=== PATIENT | male | born 1945 | race Caucasian/White ===

== ENCOUNTER → 2018-06-03 11:54 | Outpatient (CLI) | payer MEDICARE, SELFPAY ==
--- NOTE | 2018-06-03 12:06 | RAD_ITS ---
STUDY: X-RAY - LUMBAR SPINE REASON FOR EXAM: Male, 72 years old. Low back pain and radiculopathy TECHNIQUE: 3 view(s) of the lumbar spine were obtained. COMPARISON: None FINDINGS: Normal lumbar lordosis. There is a levoscoliosis of the lumbar spine. There is a normal alignment of the vertebrae. Normal vertebral bodies and endplates. There is multi-level degenerative disc disease with multi-level disc space narrowing and small anterior osteophytes. No spondylolisthesis. There are mild aortic calcifications. The soft tissue structures are unremarkable. RAD/Lumbar Spine 2 or 3 Views IMPRESSION: Multilevel degenerative disc disease. Electronically Signed: Adama Tucker, at 12:21 EDT Tel , Service support ,
== END ==
PROVIDERS: Family Provider Family Medicine; PCP Family Medicine; Referring Provider Anesthesiology Pain Medicine; Visit Provider Anesthesiology Pain Medicine
DX: M54.5 Low back pain (principal)
CPT/HCPCS: 72100

== ENCOUNTER → 2018-07-01 11:59 | Outpatient (CLI) | payer MEDICARE, SELFPAY ==
--- NOTE | 2018-07-01 12:02 | RAD_ITS ---
STUDY: X-RAY - CERVICAL SPINE REASON FOR EXAM: Male, 72 years old. Left-sided neck pain for 2 weeks. TECHNIQUE: 3 view(s) of the cervical spine were obtained. COMPARISON: None FINDINGS: There are degenerative changes of the anterior atlantoaxial articulation. Normal odontoid process. There is straightening of the normal cervical lordosis. There is multi-level endplate spondylosis. There is multi-level degenerative disc disease with multilevel disc space narrowing. Normal visualized intervertebral neuroforamina. The soft tissue structures are unremarkable. RAD/Cerv Spine 2 or 3 Views IMPRESSION: Multilevel degenerative changes and decreased disc space with compounding demineralization. No evidence of malalignment. Likely fusion at C5-6 is noted. Electronically Signed: Kermit Olvera DO at 22:16 EDT , Service support ,
== END ==
PROVIDERS: Family Provider Family Medicine; PCP Family Medicine; Referring Provider Anesthesiology Pain Medicine; Visit Provider Anesthesiology Pain Medicine
DX: M54.2 Cervicalgia (principal)
CPT/HCPCS: 72040

== ENCOUNTER → 2018-10-19 12:06 | Outpatient (CLI) | payer MEDICARE, SELFPAY ==
--- NOTE | 2018-10-19 12:22 | RAD_ITS ---
HISTORY: Pain left hip, NKI ADDITIONAL HISTORY: None provided. COMPARISON: None TECHNIQUE: AP and lateral views of the left hip with AP pelvis Number of images including paperwork: 3 FINDINGS: BONES: No acute fracture. Laminectomy defects noted in the lower spine. JOINTS: No subluxation. Advanced degenerative changes of the left hip. Mild degenerative changes of the right hip. SOFT TISSUES: No distinct foreign body. RAD/HIP, UNI W/ Pelvis 2-3 Views IMPRESSION: Degenerative changes without acute osseous abnormality. at 2239 Reported and signed by: Marichuy Siu MD Electronically Signed: Marichuy Siu MD at 22:39 EDT Tel , Service support ,
== END ==
PROVIDERS: Family Provider Family Medicine; PCP Family Medicine; Referring Provider Anesthesiology Pain Medicine; Visit Provider Anesthesiology Pain Medicine
DX: M25.559 Pain in unspecified hip (principal)
CPT/HCPCS: 73502

== ENCOUNTER 2018-12-29 07:18 | Inpatient (IN) | payer MEDICARE, SELFPAY ==
[2018-12-17 13:20] VITALS: BP 116/62; PULSE 67; RESP 16; TEMP 36.8; O2SAT 95; BMI 29.4
--- NOTE | 2018-12-17 13:37 | PCM.HP.BLA ---
History and Physical History and Physical Patient Name: Daniel Lama : 1945 From: CARIDAD OROPEZA PA-C DATE OF SURGERY: 12/29/2018 SCHEDULED PROCEDURE: Left total hip arthroplasty HISTORY OF PRESENT ILLNESS: Preoperative history and physical exam was performed on December 17, 2018. This is a 73-year-old male who has been having ongoing pain in the left hip for the past 1 year. Patient also complains of right hip pain but left is worse. He does walk with a limp. Patient states his pain is intermittent, sharp, stabbing. He has increased pain with driving, walking, and working. He does have start up pain. Pain is located in his groin. He does have difficulty completing yard work due to the pain. He has difficulty with walking and shopping due to the pain. Patient has tried physical therapy and home exercises in 2018 with no relief in symptoms. He denies previous surgery on the left hip. Patient does see pain management doctor but solidly for low back pain and radiculopathy. He is currently on gabapentin. He has had a previous laminectomy in 2018 and has numbness and tingling in the left lower extremity. Patient has also tried [id number] ibuprofen with no relief in symptoms. After failing conservative measures and discussing treatment options with Dr. Poncho Chatman, the patient would like to proceed with a left total hip arthroplasty. We have obtain surgical clearance from the primary care physician Dr. Jesse Pro. Patient denies chest pain, shortness of breath, fevers chills, recent infections. REVIEW OF SYSTEMS: ROS: Const: Denies anorexia, change in appetite, fever, difficulty sleeping, weight change. CV: Denies chest pain, heart murmur, irregular heartbeat and peripheral vascular disease. Resp: Denies asthma, cough, pneumonia, sleep apnea, shortness of breath, tuberculosis and wheezing. GI: Reports rectal itching, but denies constipation, diarrhea, heartburn, nausea, bloody stools and vomiting. : Denies incontinence. Musculo: Denies leg swelling, pain, trouble walking and weakness. Skin: Denies Raynaud's, history of shingles and tattoo. Neuro: Denies ambulatory dysfunction, dizziness, numbness/tingling and tremor. Psych: Denies anxiety, depression, insomnia, mental illness and stress. Paul/Lymph: Denies anemia, bleeding/bruising tendency and past transfusion. Reviewed, no changes. PAST MEDICAL HISTORY: Advance Care Plan: No Advance Directives Effective Date: 12/02/2018 PMH: Medical Problems: High Blood Pressure, High Cholesterol Accidents: None Surgical Hx: Tonsillectomy - (1944) [place] Laminectomy - (2018) Hernia Repair - (2018) Anesthesia Complications: Waking Up Assistive Devices: Dentures - partial Reviewed and updated. SOCIAL HISTORY: SH: Marital: .Occupation: Retired.Work Status: Retired.Hand Dominance: Right-handed. Personal Habits: Cigarette Use: Never.Smokeless Tobacco: Never Used Smokeless Tobacco.E-Cigarette Use: Never used.Alcohol: Occasionally.Drug Use: Denies Use.Enjoy Exercising: Exercises 1-3 X/Week. Reviewed, no changes. VITALS: Ht: 70 Wt: 199lb Wt k.266 BMI: 28.6 BP: 118/80 Pulse: 70 Resp: 16 T: 97.7 T: 36.5C ALLERGIES: No Known Drug Allergy MEDICATIONS: Aspir-81 81 mg 1 po qdAY, Hydrochlorothiazide 25 mg 1 by mouth every day, Simvastatin 40 mg 1 by mouth every day, Losartan Potassium 100 mg 1 by mouth every day, Gabapentin 300 mg 1-2 tabs at bedtime PRE-OP EXAM: General appearance:NORMAL Other: Eyes: Conjunctivae and lids: NORMAL Pupils: ERR Ears, Nose, Mouth, and Throat: NORMAL Other: Inspection of lips, teeth and gums: NORMAL Other: Neck: Examination of neck: no masses noted. Respiratory: Assessment of respiratory effort: NORMAL Other: Auscultation of lungs: clear to auscultation no wheezes, rhonchi or rales. Cardiovascular: Auscultation of heart: regular rate and rhythm, no murmurs, gallops or rubs. Gastrointestinal: Exam of abdomen: soft, nontender, nondistended bowel sounds present. PHYSICAL EXAMINATION: Patient does walk with a limping gait. Left hip is cool to touch without erythema. There is tenderness to palpation of the left lateral hip. There is 3 mm leg length discrepancy with the left being shorter than the right. Patient does have obligatory rotation with flexion of the left hip. Left hip range of motion: 80 flexion, 30 external rotation, internal rotation neutral. Patient does have flexion contracture. Sensation intact to light touch. Neurovascularly intact. IMAGING STUDIES: X-rays of the left hip were obtained at [facility] [place] on December 17, 2018 including AP pelvis, AP left hip, crossfire lateral left hip reveal severe joint space narrowing with [id number] contact with osteophyte formation at the acetabulum and subchondral sclerosis. This is consistent with severe hypertrophic left hip osteoarthritis. There is mild to moderate joint space narrowing of the acetabulum of the right hip. No acute finding for fracture or dislocation. No lytic or blastic lesions. IMPRESSION: 1. Severe left hip osteoarthritis 2. Right hip osteoarthritis 3. Hypertension 4. Hypercholesterolemia 5. Chronic low back pain with radiculopathy PLAN: Dr. Poncho Chatman did discuss and review with the patient all treatment options including surgical versus nonsurgical options. Patient does wish to proceed with the above-stated procedure. Potential risks, benefits, and complications of the procedure were discussed in detail including but not limited to , infection, nerve and blood vessel damage, persistent pain, numbness, tingling, paresthesias, blood clot, pulmonary embolism, and requirement for possible further surgery. The patient expressed full understanding and has no further questions for the doctor. Patient does agree to proceed with the above-stated procedure and has signed the surgery consent form. This dictation was created using voice recognition software. Phonetic and/or grammatical errors may exist. ___ I have re-examined the patient. There are no clinical changes since date of exam. ___ See progress notes for changes. ___ Dictated on admission Date: Time: Signature:
[2018-12-17 14:15] LABS: Absolute Lymphocyte Count 1.05 X10^3/uL (0.83-4.51); Absolute Neutrophil Count 3.3 X10^3/uL (2.0-7.7); Basophil# 0.08 X10^3/uL; Basophil% 1.6 % (0-1); Eosinophil# 0.07 X10^3/uL; Eosinophils% 1.4 % (0-5); Hematocrit 42.3 % (40-54); Hemoglobin 14.3 g/dL (13.0-16.5); Lymphocyte # 1.05 X10^3/ul (4.0); Lymphocyte % 21.1 % (19-41); Mean Corp Hgb Conc 33.8 g/dL (32-36); Mean Corpuscular Hgb 29.3 pg (27.0-32.0); Mean Corpuscular Volume 86.7 fL (80-94); Mean Platelet Vol. 10.2 fl (6.2-12.0); Monocyte# 0.42 X10^3/uL; Monocyte% 8.5 % (0-10); NRBC Flagged by Analyzer 0 % (0-5); Neutrophil # 3.32 X10^3/uL (2.7-7.7); Neutrophil % 66.8 % (47-70); Platelet Count 205 K/mm3 (150-450); RBC Distribution Width CV 12.8 % (11.6-14.6); RBC Distribution Width SD 40.5 fl (35.1-43.9); Red Blood Count 4.88 M/mm3 (4.6-6.2)
[2018-12-17 14:46] LABS: Anion Gap 9 (5-15); BUN 16 mg/dL (7-18); BUN/Creat Ratio 18.9 RATIO (10-20); Calcium,Total 8.7 mg/dL (8.5-10.1); Chloride 107 mmol/L (98-107); Creatinine, Serum 0.85 mg/dL (0.70-1.30); EST Glomerular Filtration Rate 94 mL/min (>60); Est Glom Filt Rate - Afr Amer 113 mL/min (>60); Estimated Creatinine Clearance 77.53 ml/min; Glucose 122 mg/dL (74-106); Potassium 3.5 mmol/L (3.5-5.1); Sodium Level 140 mmol/L (136-145)
[2018-12-29] VITALS (13 sets, daily range): BP systolic 105–150; BP diastolic 55–77; PULSE 61–82; RESP 14–18; TEMP 36.2–36.8; O2SAT 94–100; BMI 29.4
[2018-12-29 07:41] LABS: Bedside Glucose 82 mg/dL (70-110)
[2018-12-29] MEDS: Gabapentin 600 MG Tablet PO (07:54)
[2018-12-29] MEDS: Magnesium Sulfate 4gm/100mL 4 GM/100 ML IV.SOLN. IV (07:54)
[2018-12-29] MEDS: Celecoxib 200 MG Capsule 400 MG PO (07:54)
[2018-12-29] MEDS: Acetaminophen 500 MG Tablet 1000 MG PO ×3 (07:54→21:08)
[2018-12-29] MEDS: Lactated Ringers 1,000 ML 100 ML IV (08:10)
[2018-12-29] MEDS: Cefazolin 2 GM in 0.9% Normal Saline 100 ML IV (09:40)
--- NOTE | 2018-12-29 10:42 | RAD_ITS ---
STUDY: X-RAY - LEFT HIP REASON FOR EXAM: Male, 73 years old. Hip replacement TECHNIQUE: 3 fluoroscopic spot views of the left hip. Fluoroscopy utilized for 0 minutes 5 seconds. COMPARISON: None. FINDINGS: Intraoperative fluoroscopy utilized during left hip replacement. RAD/Hip 1 view with Pelvis IMPRESSION: Intraoperative fluoroscopy. Electronically Signed: Wero Marvin MD at 17:32 EST , Service support ,
[2018-12-29] MEDS: Lactated Ringers 1,000 ML 999 ML IV (11:20)
--- NOTE | 2018-12-29 11:21 | PCM.OPRPT ---
Report of Operation Date of Procedure: 12/29/18 Pre-Operative Diagnosis: Left hip primary osteoarthritis Post-Operative Diagnosis: Left hip primary osteoarthritis Surgery/Procedure Performed:: Left minimally invasive direct anterior total replacement Description of Surgical Findings:: Stable hip with equal leg lengths exchange administrator: Aleena Paul Type of Anesthesia:: Spinal Anesthesiologist: Kyler Quinones Special Medications: 2 g Ancef, 1 g TXA at incision, 1 g TXA closure, 10 mg Decadron, joint cocktail (5 mg Duramorph, 30 mL of 0.5% Ropivicaine, 1000 units of epinephrine, 30 mg of Toradol) Specimen's removed: Bony cuts Estimated Blood Loss (mL): 150 Fluids Replaced: 700 mL crystalloid Description of Procedure: Components used: 1. Accolade 2 [place] femoral stem size 8 132? 2. Joanie trident 2 acetabular shell size 58 mm 3. Joanie X3 polyethylene F 4. Joanie Biolox delta 36mm, -2.5mm femoral head Brief history operative indications: 73 yo m who failed conservative measures for their hip osteoarthritis. X-rays were consistent with osteoarthritis including joint space narrowing, osteophyte formation and subchondral cysts. Total hip replacement was discussed with the patient with risks and benefits including but not limited to blood loss, DVTs, PEs, neurovascular damage, dislocation, general risks of anesthesia including loss of life. Patient demonstrated an understanding medical clearance is obtained the patient was consented for surgery. Procedure: On the date of procedure the patient's L hip was marked in the preoperative area. Patient was then taken back to the operating room where anesthesia assumed control of the C-spine and airway and administered anesthetic. Patient was transferred to the operating table and placed in the supine position. The hips were placed at the break of the bed and a sacral bump was placed. The L lower extremity was then prepped out in a sterile fashion using chlorhexidine while the surgeon scrubbed. The PA was vital in the positioning of the patient. Upon reentering the room the L lower extremity was draped in the standard orthopedic fashion and the incision was marked. A timeout was called and everyone agreed upon the side, the site, the procedure be performed, antibody given, and patient's identity. At this time incision was made through skin, subcutaneous tissue, and fat down to fascia. The fascia was then incised and the TFL was retracted laterally. A retractor was placed on the lateral border of the femoral neck. Attention was directed to the inferior portion of the approach and all crossing vessels were identified and appropriately coagulated. A retractor was then placed on the medial portion of the femoral neck. The anterior capsule was then cleared of all soft tissue and then H shaped capsulotomy was made. The retractors were then placed inside the capsule. The femoral neck was identified and a cleanup cut was made. At this time a power corkscrew was used to remove the femoral head. Attention was then turned toward the acetabulum where the soft tissues were appropriately retracted and the acetabulum was sequentially reamed to 58 mm. A 58 mm cup was then selected and impacted into place. Acetabular liner was impacted into place and locking mechanism was verified. The position of the acetabular cup was then verified under live fluoroscopy. Attention was then turned to the femur. Soft tissue releases on the medial and lateral femoral neck were appropriately done, the leg was externally rotated and lateralized. A Benavidez retractor was placed medially and proximally to the greater trochanter this allowed appropriate visualization and exposure of the femoral canal. Rongeour was then used to remove excess lateral bone. A canal finder and entry broach were used to open the proximal canal. Once we verified we were down the femoral canal we subsequently broached up to a size 8 femur. The appropriate neck was placed in the previously selected head was trialed with a -2.5 mm neck. Traction was pulled and the hip was reduced with internal rotation. Once it was appropriately reduced and stability was checked. There was minimal shuck, equal leg lengths and appropriate stability with hyperextension and external rotation as well as with 90? flexion and internal rotation. Fluoroscopy was then also used to verify the position of the components and leg lengths using the contralateral side for comparison. The trial components were then dislocated the proximal femur was again exposed and the components were removed from the wound. The final components were verified and opened. The wound was copiously irrigated out with normal saline. The acetabulum was checked for any residual debris. The final components were placed and impacted. Traction and internal rotation were again used to reduce the hip. After adequate reduction the hip remained stable with appropriate leg lengths. The final components were once again checked with live fluoroscopy and were found to be satisfactory. The wound was then copiously irrigated with normal saline once more, and hemostasis was obtained. Closure was then done using #1 Vicryl runner to close the fascia. A 2-0 vicryl interuppted sutures were used to close the subcutaneous skin. A 3-0 Monocryl and Steri-Strips were used for final skin closure. A Silverlon dressing was placed. Patient was awakened by anesthesia and transferred to the [facility]. Patient was then transferred to the PACU for recovery. Postoperative plan: Patient will get 24 hours postop antibiotics. Patient will get in-house physical therapy and will be weight-bear as tolerated. Patient will follow up in office in 2 weeks for a wound check and x-rays. Grafts/Implants Used: [place] - Complications No intraoperative complications - Admit VTE Documentation VTE Present on Admission: No VTE Mechan Device Prophylaxis: SCD's, Thigh High KADEEM Hose VTE Pharm Prophylaxis ordered?: Yes
[2018-12-29] MEDS: Scopolamine 1mg/72hr Patch 1 PATCH TD (11:30)
--- NOTE | 2018-12-29 12:22 | RAD_ITS ---
STUDY: X-RAY - PELVIS AND LEFT HIP REASON FOR EXAM: Male, 73 years old. Postoperative evaluation TECHNIQUE: 3 views of the pelvis and hip. COMPARISON: Pelvic x-ray dated October 19, 2018 FINDINGS: There is a non-specific bowel gas pattern. Normal visualized soft tissue structures. The new left hip prosthesis demonstrates good bony contact and alignment with well placed hardware. No occult fractures are seen. The remaining osseous structures are stable. Expected postoperative gas is seen in the soft tissue structures of the left hip. RAD/Hip Min 2 Views (Portable) IMPRESSION: Status post total left hip arthroplasty Electronically Signed: Be Esteban MD at 17:29 EST , Service support ,
[2018-12-29] MEDS: Lactated Ringers 1,000 ML 125 ML IV (13:43)
[2018-12-29] MEDS: Cefazolin 1 GM/50 ML BAG IV (17:47)
[2018-12-29] MEDS: Ensure Surgery 237 ML LIQUID PO (17:47)
[2018-12-29] MEDS: Aspirin 81 MG TAB.CHEW PO (17:48)
[2018-12-29] MEDS: Senna/Docusate Sodium 1 Tablet 2 TABLET PO (21:06)
[2018-12-29] MEDS: Atorvastatin Calcium 20 MG Tablet PO (21:08)
[2018-12-30] MEDS: Cefazolin 1 GM/50 ML BAG IV (02:08)
[2018-12-30 02:12] VITALS: BP 117/66; PULSE 59; RESP 18; TEMP 36.7; O2SAT 97
[2018-12-30 05:43] LABS: Hematocrit 36.6 % (40-54); Hemoglobin 12.3 g/dL (13.0-16.5); Mean Corp Hgb Conc 33.6 g/dL (32-36); Mean Corpuscular Hgb 29.4 pg (27.0-32.0); Mean Corpuscular Volume 87.4 fL (80-94); Mean Platelet Vol. 9.8 fl (6.2-12.0); Platelet Count 177 K/mm3 (150-450); RBC Distribution Width CV 13.2 % (11.6-14.6); RBC Distribution Width SD 41.8 fl (35.1-43.9); Red Blood Count 4.19 M/mm3 (4.6-6.2); White Blood Count 14.4 K/mm3 (4.4-11.0)
[2018-12-30 05:56] LABS: Anion Gap 5 (5-15); BUN 23 mg/dL (7-18); BUN/Creat Ratio 27.2 RATIO (10-20); Calcium,Total 8.1 mg/dL (8.5-10.1); Chloride 108 mmol/L (98-107); Creatinine, Serum 0.85 mg/dL (0.70-1.30); EST Glomerular Filtration Rate 94 mL/min (>60); Est Glom Filt Rate - Afr Amer 114 mL/min (>60); Estimated Creatinine Clearance 77.53 ml/min; Glucose 135 mg/dL (74-106); Potassium 4.3 mmol/L (3.5-5.1); Sodium Level 138 mmol/L (136-145)
[2018-12-30] MEDS: Acetaminophen 500 MG Tablet 1000 MG PO (06:21)
--- NOTE | 2018-12-30 07:55 | PCM.PN.ORT ---
Subjective: The patient was sitting in bedside chair upon examination. Patient denies any chest pain, shortness of breath, dizziness, lightheadedness, nausea or vomiting, or calf pain. Pain is controlled on medications. No adverse overnight events. Overall patient is doing very well and pain is well controlled. He is ready for discharge home.. Objective: Vital signs stable and afebrile. Patient is able to plantarflex and dorsiflex actively. Sensation is intact to light touch to saphenous, sural, superficial and deep peroneal, and tibial distribution. Dressing is clean dry and intact. Negative Homans bilaterally, negative signs and symptoms of DVT. - Physical Exam Vitals/I&O's: Vital Signs Temp Pulse Resp BP Pulse Ox 98.1 F 59 L 18 117/66 97 12/30/18 02:12 12/30/18 02:12 12/30/18 02:12 12/30/18 02:12 12/30/18 02:12 Oxygen Flow Rate (L/min) 6 Oxygen Delivery Method Room Air Weight: 93 kg Body Mass Index (BMI) 29.4 Intake and Output for Last 24 Hours 12/28/18 12/29/18 12/30/18 23:59 23:59 23:59 Intake Total 3060.00 / 3060.00 50 / 50 Output Total 500 / 500 Balance 3060.00 / 3060.00 -450 / -450 General: Alert, Oriented x3, Cooperative, No apparent distress Laboratory Results 12/30/18 05:25: WBC 14.4 H, RBC 4.19 L, Hgb 12.3 L, Hct 36.6 L, MCV 87.4, MCH 29.4, MCHC 33.6, RDW Std Deviation 41.8, RDW Coeff of Monik 13.2, Plt Count 177, MPV 9.8 12/30/18 05:25: Sodium 138, Potassium 4.3, Chloride 108 H, Carbon Dioxide 25.0, Anion Gap 5, BUN 23 H, Creatinine 0.85, Estim Creat Clear Calc 77.53, Est GFR (MDRD) Af Amer 114, Est GFR (MDRD) Non-Af 94, BUN/Creatinine Ratio 27.2 H, Glucose 135 H, Calcium 8.1 L Current Medications Acetaminophen (Tylenol) 1,000 mg PO Q8 CONSTANTIN Last Admin: 12/30/18 06:21 Dose: 1,000 mg Documented by: [facility], [facility]) [facility] Last Admin: 12/29/18 17:48 Dose: 81 mg Documented by: Atorvastatin Calcium (Lipitor) 20 mg PO QHS [facility] Last Admin: 12/29/18 21:08 Dose: 20 mg Documented by: Enteral Nutritional Formula (Ensure Surgery) 237 ml PO TIDCM [facility] Last Admin: 12/29/18 17:47 Dose: 237 ml Documented by: Famotidine (Pepcid) 20 mg PO DAILY [facility] Gabapentin (Neurontin) 600 mg PO DAILY@0800 [facility] Hydrochlorothiazide (Hctz) 25 mg PO DAILY [facility] Ketorolac Tromethamine (Toradol) 15 mg IV Q6H PRN PRN PRN Reason: Pain Score 1-5/10 Stop: 12/31/18 11:20 Losartan Potassium (Cozaar) 100 mg PO DAILY [facility] Meloxicam (Mobic) 7.5 mg PO BID [facility] Morphine Sulfate () 2 - 4 mg IV Q2H PRN PRN PRN Reason: Pain Score 4-10/10 Morphine Sulfate () 2 - 4 mg IV Q2H PRN PRN PRN Reason: Pain Score 4-10/10 Ondansetron HCl (Zofran) 4 mg IV Q8H PRN PRN PRN Reason: NAUSEA Promethazine HCl (Phenergan) 12.5 mg IM Q6H PRN PRN; Protocol PRN Reason: NAUSEA/VOMITING Senna/Docusate Sodium (Senokot-S, Gaby-Colace) 2 tablet PO BID [facility] Last Admin: 12/29/18 21:06 Dose: 2 tablet Documented by: Sodium Chloride () 10 - 40 ml IV UD PRN PRN Reason: SALINE FLUSH Tramadol HCl (Ultram) 50 - 100 mg PO Q6H PRN PRN PRN Reason: Pain Score 4-10/10 Medical Necessity - Tobacco Use Smoking Status: Never smoker Tobacco Use: Non-smoker Assessment/Plan 1. S/P direct anterior left total hip arthroplasty POD #1 2. Continue Pain Medications: Tylenol and tramadol 3. DVT Prophylaxis: Aspirin 81 mg twice daily for DVT prophylaxis 4. PT/OT: Weightbearing as tolerated 5. H & H: 12.3/36.6, asymptomatic 6. Reactive leukocytosis: Currently 14.4, afebrile. Patient did receive Decadron intraoperatively 7. Encouraged Incentive Spirometry 8. Disposition: Orthopedically stable, plan will be for discharge home today as long as patient tolerates physical therapy. Prescriptions will be E scribed to [facility]. Patient will follow-up per postop instructions. Patient has outpatient physical therapy established.
--- NOTE | 2018-12-30 08:02 | PCM.DC.THR ---
Discharge Diet: No Restrictions Discharge Activity: May Not Drive - while taking narcotic pain medications. May shower in (days): 1 - Dressing must remain intact skin. Turn dressing away from water Ice area for (Minutes): 20 - Every 1-2 hours while awake Weight Bearing Status: Weight bearing as tolerated Elevate: Operative Extremity Additional Activity Instructions:: Wear elastic stockings for 2 weeks. DO NOT use alcohol with narcotic pain medication. DO NOT make important decisions while taking narcotic medication. If you have problems with taking your medication (rash, itching, nausea, etc.) call the office at once. Call your doctor if your incision/area has: Increased Pain/ Swelling, Increased Redness, Foul Smelling Discharge Call your doctor if you observe: Fever of 101 or Higher Remove Dressing in (days):: 4 - Okay to remove dressing on January 03, 2019 Additional Instructions: Follow orthopedic postop instructions Allergies/Adverse Reactions: Allergies No Known Allergies Allergy (Verified 12/29/18 07:42) Medications to take at Discharge Hydrochlorothiazide [Hctz] 25 mg PO DAILY 06/02/14 Losartan Potassium [Cozaar] 100 mg PO DAILY 06/02/14 Simvastatin [Zocor] 40 mg PO QHS 06/02/14 Gabapentin [Neurontin] 600 mg PO DAILY 12/17/18 Acetaminophen [Tylenol] 1,000 mg PO Q8 #100 tab 12/30/18 Aspirin [Aspirin, Baby] 81 mg PO BIDCM 30 Days tab.chew 12/30/18 Famotidine [Pepcid] 20 mg PO DAILY #30 tab 12/30/18 Meloxicam [Mobic] 7.5 mg PO BID #60 tab 12/30/18 Senna/Docusate Sodium [Senokot-S] 2 tab PO BID #10 tab 12/30/18 traMADol [Ultram] 50 - 100 mg PO Q6H PRN PRN 4 Days #32 tablet 12/30/18 The following prescriptions were given: Meloxicam [Mobic] 7.5 mg PO BID #60 tab Transmission Status: Pending to [facility] Famotidine [Pepcid] 20 mg PO DAILY #30 tab Transmission Status: Pending to [facility] Senna/Docusate Sodium [Senokot-S] 2 tab PO BID #10 tab Transmission Status: Pending to [facility] Acetaminophen [Tylenol] 1,000 mg PO Q8 #100 tab Transmission Status: Pending to [facility] traMADol [Ultram] 50 - 100 mg PO Q6H PRN PRN 4 Days #32 tablet PRN Reason: Pain Score 4-1010 Transmission Status: Sent to [facility] Primary Care Physician: Jair Pro MD [Primary Care Provider] - Test Results: Test results from this visit will be discussed in further detail at your follow-up appointment, if applicable. Please Follow Up With: Physical Therapy When: 01/03/19 @ 9:00 am Please Follow Up With: Poncho Kelly PA-C When: 01/12/19 @ 10:45 am
[2018-12-30] MEDS: Losartan Potassium 50 MG Tablet 100 MG PO (09:04)
[2018-12-30] MEDS: Gabapentin 600 MG Tablet PO (09:04)
[2018-12-30] MEDS: Aspirin 81 MG TAB.CHEW PO (09:04)
[2018-12-30] MEDS: Ensure Surgery 237 ML LIQUID PO (09:04)
[2018-12-30 09:05] VITALS: PULSE 68
[2018-12-30] MEDS: Famotidine 20 MG Tablet PO (09:05)
[2018-12-30] MEDS: hydroCHLOROthiazide 25 MG Tablet PO (09:05)
[2018-12-30] MEDS: Senna/Docusate Sodium 1 Tablet 2 TABLET PO (09:06)
[2018-12-30 10:13] VITALS: BP 116/68; PULSE 67; RESP 18; TEMP 36.9; O2SAT 96
--- NOTE | 2018-12-30 11:12 | CASEMGMT ---
MOON MCMANUS attempted to complete CM assessment. Patient has beed discharged and unable to complete. Patient has outpatient therapy scheduled at [facility] on Thursday01/03/19. Per therapy note patient has walker. Per nursing providing transportation.
== END 2018-12-30 10:43 | disposition home or self-care (01) | DRG 470 ==
LOC: ACINP 07:19 → MS3 12:43
PROVIDERS: Admitting Provider Specialist; Family Provider Family Medicine; PCP Family Medicine; Referring Provider Specialist; Visit Provider Specialist
PROC: 0SRB04A Replacement of Left Hip Joint with Ceramic on Polyethylene Synthetic Substitute, Uncemented, Open Approach (ICD-10-PCS; CPT 27284; principal; 2018-12-29 09:35)
DX: M16.0 Bilateral primary osteoarthritis of hip (principal); I10 Essential (primary) hypertension; E78.00 Pure hypercholesterolemia, unspecified; M54.16 Radiculopathy, lumbar region; G89.29 Other chronic pain; D72.828 Other elevated white blood cell count; Z79.899 Other long term (current) drug therapy
CPT/HCPCS: 36415; 73501; 73502; 76000; 80048; 82962; 85025; 85027; 87081; 97110; 97162; 97166; 97530; 99251; C1776; J7120; G0463; J2405

== ENCOUNTER → 2019-10-19 10:53 | Outpatient (CLI) | payer MEDICARE, SELFPAY ==
[2019-10-19 10:03] VITALS: BMI 28.3
[2019-10-19 12:32] LABS: AST(SGOT) 19 U/L (15-37); Alanine Aminotransfer ALT/SGPT 21 U/L (16-61); Albumin, Serum 3.7 g/dL (3.2-5.0); Alkaline Phosphatase 91 U/L (45-117); Bilirubin, Direct 0.17 mg/dL (0.00-0.30); Cholesterol 160 mg/dL (200); Globulin 3.3 g/dL (2.2-4.2); High Density Lipoprotein 56 mg/dL; Triglycerides 78 mg/dL; Very Low Density Lipoprotein 16 mg/dL (5-40)
== END ==
PROVIDERS: PCP Family Medicine; Referring Provider Internal Medicine Cardiovascular Disease; Visit Provider Internal Medicine Cardiovascular Disease
DX: R00.2 Palpitations (principal); R07.89 Other chest pain
CPT/HCPCS: 36415; 80061; 80076

== ENCOUNTER → 2019-11-08 10:44 | Outpatient (CLI) | payer MEDICARE, SELFPAY ==
[2019-10-19 10:03] VITALS: BMI 28.3
--- NOTE | 2019-11-08 10:45 | ECHOCS_ITS ---
Reason For Study: Arrhythmia Procedure This was a 2D Doppler, Color Flow transthoracic echocardiogram. The study was technically difficult. Contrast injection was performed. Exam performed in department. Left Ventricle Normal LV size. Left ventricular systolic function is normal. The estimated ejection fraction is 65 %. Stage 1 diastolic dysfunction. No regional wall motion abnormalities noted. Right Ventricle Normal RV size. Normal systolic function. Atria Normal left atrium. Normal right atrium. Mitral Valve Normal mitral valve. Tricuspid Valve Normal tricuspid valve. Mild tricuspid valve insufficiency. Pulmonary artery systolic pressure is 26 mmHg. Aortic Valve Trisinus/trileaflet aortic valve. Mild (1+) eccentric aortic valve insufficiency. Pulmonic Valve Normal pulmonic valve. Great Vessels Normal aortic root. Pericardium/Pleural No pericardial effusion. Medication 22 gauge I.V. with prn adaptor inserted into right arm. Diluted definity 5ml given slow IV push to enhance endocardial definition. MMode/2D Measurements & Calculations LVIDd: 4.6 cm IVSd: 0.85 cm Ao root diam: 3.9 cm LVIDs: 3.2 cm LVPWd: 1.0 cm RVDd: 4.0 cm FS: 31.5 % LAV(MOD-bp): 72.3 ml LA A4 area: 21.9 cm2 RA A4 area: 18.9 cm2 LAV(MOD-bp) Indexed: 35.0 ml/m2 LAV(MOD-sp2): 74.9 ml LAV(MOD-sp4): 67.3 ml Time Measurements MV dec time: 0.31 sec Doppler Measurements & Calculations MV E max deven: 60.5 cm/sec Lat Peak E' Deven: 9.9 cm/sec Med Peak E' Deven: 8.6 cm/sec MV A max deven: 73.4 cm/sec E/E' lat: 6.1 E/E' med: 7.0 MV E/A: 0.82 MV V2 max: 73.8 cm/sec MV P1/2t max deven: 69.5 cm/sec Ao V2 max: 124.9 cm/sec MV max P.2 mmHg MV P1/2t: 117.4 msec Ao max P.2 mmHg MV V2 mean: 40.2 cm/sec MV dec slope: 173.3 cm/sec2 MV mean P.77 mmHg MV V2 VTI: 27.7 cm MVA(P1/2t): 1.9 cm2 AI max deven: 408.4 cm/sec LV V1 max: 102.3 cm/sec PA V2 max: 88.6 cm/sec AI max P.7 mmHg LV V1 max P.2 mmHg AI dec slope: 192.6 cm/sec2 AI P1/2t: 620.9 msec TR max deven: 239.3 cm/sec TR max P.9 mmHg Interpretation Summary Normal LV size. Left ventricular systolic function is normal. The estimated ejection fraction is 65 %. Stage 1 diastolic dysfunction. Contrast injection was performed. Ordering Physician: Paulie Mead Referring Physician: Jesse Pro Performed By: Urbano Jones RCS
== END ==
PROVIDERS: PCP Family Medicine; Referring Provider Internal Medicine Cardiovascular Disease; Visit Provider Internal Medicine Cardiovascular Disease
DX: I49.3 Ventricular premature depolarization (principal)
CPT/HCPCS: 93306; Q9957; A4216; C8929

== ENCOUNTER 2020-04-24 12:17 | Emergency (ER) | payer MEDICARE, SELFPAY ==
[2019-10-19 10:03] VITALS: BMI 28.3
[2020-04-24 12:17] VITALS: BP 158/72; PULSE 55; RESP 16; TEMP 36.6; O2SAT 98; BMI 29.9
--- NOTE | 2020-04-24 12:26 | CT_ITS ---
STUDY: CT ABDOMEN AND PELVIS WITHOUT CONTRAST REASON FOR EXAM: Male, 74 years old. left flank pain RADIATION DOSAGE (If Supplied By Facility): CTDIvol = ( 13.93 ) mGy, DLP = ( 697.86 ) mGycm TECHNIQUE: Transaxial images were obtained from the dome of the diaphragm to the symphysis pubis without oral contrast, and without intravenous contrast. Sagittal and coronal images were reconstructed. Individualized dose optimization techniques were used for this CT. COMPARISON: None. FINDINGS: The visualized lung bases are unremarkable. The visualized portions of the heart are within normal limits. Normal liver. Normal gallbladder and extrahepatic biliary system. Normal spleen. Normal pancreas. Normal bilateral adrenal glands. There is a 3 mm stone in the distal left ureter with resultant moderate left hydronephrosis. There are multiple bilateral kidney stones the largest measures 5 mm. Colon diverticulosis. Normal visualized stomach. Normal small intestine. There are multiple colonic diverticula consistent with diverticulosis. The appendix is visualized and appears normal. There is diffuse atherosclerotic calcification of the abdominal aorta with elongation and tortuosity, but without a demonstrated aneurysm. Normal inferior vena cava. Normal retroperitoneum. Normal urinary bladder. Normal abdominal wall. Normal osseous structures. CT/Abdomen/Pelvis without Cont IMPRESSION: There is a 3 mm stone in the distal left ureter with resultant moderate left hydronephrosis. There are multiple bilateral kidney stones the largest measures 5 mm. Colon diverticulosis. Electronically Signed: Modesto Bush MD at 14:15 EST Tel , Service support ,
--- NOTE | 2020-04-24 12:29 | ED.VISSUMM ---
- ER Visit Summary Date of Service: 04/24/20 Chief Complaint: Left flank pain History of Present Illness: The patient is a 74 M presenting with left flank pain. He states this started this morning. He states he has had both diverticulitis and kidney stones in the past. He states it feels similar to both. He gets injections for chronic back pain per Dr. Verdugo. He states this is a different pain that started today. He has nausea with no vomiting. Denies urinary complaints. He has had constipation, his last bowel movement was 3 days ago. Denies fever or other complaints. Physical Examination: Vitals are stable. Patient is afebrile. Alert no acute distress. HEENT exam is unremarkable. Neck is supple. Lungs are clear and equal bilaterally. Heart is regular rate and rhythm. Abdomen is soft nontender nondistended. No guarding or rebound Back left CVA tenderness Extremities are unremarkable. Skin is warm and dry. No focal neurologic deficit. Remainder of exam is unremarkable. Emergency Department Course and Treatment: Patient was given morphine, Zofran IV. CBC, chemistries unremarkable. Urinalysis shows 0-5 white blood cells, 10-[address] flank shows there is a 3 mm stone in the distal left ureter with resultant moderate left hydronephrosis. There are multiple bilateral kidney stones the largest measures 5 mm. Colon diverticulosis. On reevaluation, patient is resting comfortably and is feeling improved. He is given prescription for [place]. Advised to follow-up with Dr. Stern. Advised return to ED for worsening complaints. Disposition: Discharge home Impression: Urolithiasis This note was generated with [employer] dictation software. It may contain incorrect words, spelling, and punctuation that were not noted in review of the chart prior to signing ED Disposition - Plan for ED Patient: Referrals: Jair Pro MD [Primary Care Provider] -
[2020-04-24 12:38] LABS: Absolute Lymphocyte Count 1.33 X10^3/uL (0.83-4.51); Absolute Neutrophil Count 3.7 X10^3/uL (2.0-7.7); Basophil# 0.06 X10^3/uL; Eosinophil# 0.07 X10^3/uL; Eosinophils% 1.2 % (0-5); Hematocrit 46.4 % (40-54); Hemoglobin 15.6 g/dL (13.0-16.5); Lymphocyte # 1.33 X10^3/ul (4.0); Lymphocyte % 22.9 % (19-41); Mean Corp Hgb Conc 33.6 g/dL (32-36); Mean Corpuscular Hgb 29.3 pg (27.0-32.0); Mean Corpuscular Volume 87.1 fL (80-94); Monocyte# 0.58 X10^3/uL; NRBC Flagged by Analyzer 0 % (0-5); Neutrophil # 3.73 X10^3/uL (2.7-7.7); Neutrophil % 64.4 % (47-70); Platelet Count 221 K/mm3 (150-450); RBC Distribution Width CV 13.2 % (11.6-14.6); RBC Distribution Width SD 41.7 fl (35.1-43.9); Red Blood Count 5.33 M/mm3 (4.6-6.2); White Blood Count 5.8 K/mm3 (4.4-11.0)
[2020-04-24 12:43] LABS: Bacteria 0 SEEN /hpf (None Seen); Mucous, Urine 0 SEEN /hpf (<or=2+)
[2020-04-24] MEDS: Ondansetron 4 MG/2 ML Vial IV (12:43)
[2020-04-24] MEDS: Morphine 4 MG/ML Syringe IV ×2 (12:43→13:14)
[2020-04-24 12:47] LABS: Color, Urine Yellow (Yellow); Glucose, Dipstick Normal (Normal); Ketone-Dipstick Negative (Negative); Leukocyte Esterase-Dipstick 25 /ul (Negative); Nitrite-Dipstick Negative (Negative); Occult Blood-Urine 150 /ul (Negative); Protein-Dipstick 15 mg/dl (Negative); Urine Bilirubin Dipstick Negative (Negative); Urine Clarity Clear (Clear); Urine Urobilinogen Normal (Normal)
[2020-04-24 12:52] LABS: Red Blood Cells-Urine 10-25 SEEN /hpf (0-5); Squamous Epithelial Cells - UA 0-5 SEEN /hpf (0-5); White Blood Cells 0-5 SEEN /hpf (0-5)
[2020-04-24 12:54] LABS: Anion Gap 9 (5-15); BUN 23 mg/dL (7-18); BUN/Creat Ratio 21.1 RATIO (10-20); Chloride 109 mmol/L (98-107); Creatinine, Serum 1.09 mg/dL (0.70-1.30); EST Glomerular Filtration Rate 70 mL/min (>60); Est Glom Filt Rate - Afr Amer 85 mL/min (>60); Estimated Creatinine Clearance 59.53 ml/min; Glucose 112 mg/dL (74-106); Potassium 3.4 mmol/L (3.5-5.1); Sodium Level 142 mmol/L (136-145)
[2020-04-24 13:17] VITALS: BP 168/74; PULSE 67; RESP 32; O2SAT 99
[2020-04-24 14:08] VITALS: BP 178/82; PULSE 65; RESP 18; O2SAT 99
--- NOTE | 2020-04-24 15:12 | ED.DEP ---
ED Disposition - Plan for ED Patient: Prescriptions: Hydrocodone Bitart/Apap 5-325 [[place] 5MG-325MG] 1 tab PO Q6H PRN PRN 3 Days #10 tab PRN Reason: Pain Prescription Printed Referrals: Jair Pro MD [Primary Care Provider] - Marin Stern MD [STAFF PHYSICIAN] -
--- NOTE | 2020-04-24 15:21 | ED.DEP ---
ED Disposition - Plan for ED Patient: Instructions: ED Kidney Stone w/ Col[place] Prescriptions: Hydrocodone Bitart/Apap 5-325 [[place] 5MG-325MG] 1 tab PO Q6H PRN PRN 3 Days #10 tab PRN Reason: Pain Prescription Printed Referrals: Jair Pro MD [Primary Care Provider] - Marin Stern MD [STAFF PHYSICIAN] -
[2020-04-24 15:31] VITALS: BP 163/78; PULSE 81; RESP 16; O2SAT 99
--- NOTE | 2020-04-24 15:32 | ED.RN ---
THIS NURSE REVIEWED D/C INSTRUCTIONS WITH PT AND . BOTH VERBALIZED UNDERSTANDING OF INSTRUCTIONS. IV D/C. IV CATHETER INTACT. PT TOLERATED WELL. PT DENIES FURTHER NEEDS OR QUESTIONS AT THIS TIME
== END 2020-04-24 15:33 | disposition home or self-care (01) ==
LOC: ED 13:25
PROVIDERS: Emergency Provider Emergency Medicine; PCP Family Medicine
DX: N13.2 Hydronephrosis with renal and ureteral calculous obstruction (principal); K57.30 Diverticulosis of large intestine without perforation or abscess without bleeding; Z87.442 Personal history of urinary calculi; K59.00 Constipation, unspecified
CPT/HCPCS: 74176; 80048; 81001; 85025; 96374; 96375; 96376; 99283; A4216; J2405

== ENCOUNTER → 2020-09-17 12:37 | Outpatient (CLI) | payer MEDICARE, SELFPAY ==
--- NOTE | 2020-09-17 12:40 | RAD_ITS ---
STUDY: X-RAY - CERVICAL SPINE REASON FOR EXAM: Male, 74 years old. Neck pain. TECHNIQUE: 4 view(s) of the cervical spine were obtained. COMPARISON: 07/01/2018. FINDINGS: Osteopenia. Normal anterior atlantoaxial articulation. Normal odontoid process. Normal cervical lordosis. Normal vertebral bodies and endplates. Diffuse uncovertebral and facet sclerosis, relatively unchanged. And intervertebral disc space narrowing at C3-4, C4-5, C5-6 and C6-7 with osteophyte formation most marked at C4-5, unchanged. The soft tissue structures are unremarkable. RAD/Cerv Spine 2 or 3 Views IMPRESSION: Osteopenia with diffuse moderate cervical spondylosis, unchanged. No acute abnormality, evidence of fusion or erosive changes. Electronically Signed: Rome Pierre MD at 13:18 EDT , Service support ,
== END ==
PROVIDERS: PCP Family Medicine; Referring Provider Anesthesiology Pain Medicine; Visit Provider Anesthesiology Pain Medicine
DX: M47.812 Spondylosis without myelopathy or radiculopathy, cervical region (principal); M85.80 Other specified disorders of bone density and structure, unspecified site
CPT/HCPCS: 72040

== ENCOUNTER → 2021-01-28 10:53 | Outpatient (CLI) | payer MEDICARE, SELFPAY ==
--- NOTE | 2021-01-28 11:10 | RAD_ITS ---
STUDY: X-RAY - PELVIS AND RIGHT HIP REASON FOR EXAM: Male, 75 years old. Right posterior and lateral hip pain. TECHNIQUE: 3 views of the pelvis and hip. COMPARISON: 12/29/2018. FINDINGS: There is a non-specific bowel gas pattern. Normal visualized soft tissue structures. Osteopenia. Stable left hip arthroplasty in the visualized components. 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 No acute finding. Electronically Signed: Rome Pierre MD at 13:00 EST , Service support ,
== END ==
PROVIDERS: PCP Family Medicine; Referring Provider Anesthesiology Pain Medicine; Visit Provider Anesthesiology Pain Medicine
DX: M16.11 Unilateral primary osteoarthritis, right hip (principal); Z96.642 Presence of left artificial hip joint
CPT/HCPCS: 73502

== ENCOUNTER → 2021-11-26 | Outpatient (CLI) | payer MEDICARE, SELFPAY ==
[2021-11-26 14:31] LABS: AST(SGOT) 18 U/L (15-37); Alanine Aminotransfer ALT/SGPT 21 U/L (16-61); Albumin, Serum 3.7 g/dL (3.2-5.0); Alkaline Phosphatase 91 U/L (45-117); Bilirubin, Direct 0.16 mg/dL (0.00-0.30); Cholesterol 182 mg/dL (200); Globulin 3.8 g/dL (2.2-4.2); High Density Lipoprotein 56 mg/dL; Protein, Total 7.5 g/dL (6.4-8.2); Triglycerides 137 mg/dL; Very Low Density Lipoprotein 27 mg/dL (5-40)
== END | disposition home or self-care (01) ==
LOC: LAB 13:25
PROVIDERS: Internal Medicine Cardiovascular Disease; PCP Family Medicine; Referring Provider Nurse Practitioner Gerontology; Visit Provider Nurse Practitioner Gerontology
DX: E78.00 Pure hypercholesterolemia, unspecified (principal)
CPT/HCPCS: 36415; 80061; 80076

== ENCOUNTER → 2024-03-31 | Outpatient (CLI) | payer MEDICARE, SELFPAY ==
--- NOTE | 2024-03-31 09:05 | RAD_ITS ---
EXAM: ESOPHAGUS DUAL CONTRAST CLINICAL HISTORY: Dysphagia. COMPARISON: None. TECHNIQUE: The patient ingested barium. Multiple fluoroscopic images and cine runs were obtained. FINDINGS: The esophagus is unremarkable. No evidence of obstruction. There is narrowing at the gastroesophageal junction. The patient ingested a 12 mm tablet the barium. The tablet is trapped at the gastroesophageal junction. Endoscopic correlation recommended. RAD/Esophagus Dual Contrast IMPRESSION: Narrowing at the gastroesophageal junction with trapping of the ingested a 12 m m tablet the barium. Endoscopic correlation recommended. Reading Location: [facility]
== END | disposition home or self-care (01) ==
LOC: RAD 08:52
PROVIDERS: PCP Internal Medicine; Referring Provider Internal Medicine Gastroenterology; Visit Provider Internal Medicine Gastroenterology
DX: R13.10 Dysphagia, unspecified (principal)
CPT/HCPCS: 74221